=== PATIENT | female | born 1985 | race Caucasian/White ===

== ENCOUNTER 2017-08-25 16:07 | Emergency (ER) | payer BC ==
[~2017-08-25] VITALS: Ht 170.2 cm; Wt 103.0 kg
[~2017-08-25 16:07] MED LIST: HYDACE5 PO; METR70GEL VAG; MULVITMINE PO; OXYACE5T PO
[2017-08-25] MEDS ORDERED: Robaxin500 MG PO (18:58)
[2017-08-25] MEDS ORDERED: Norco 5-325 Ta1 EACH PO (18:58)
[2017-08-25] MEDS ORDERED: IBUP800 PO (18:58)
[2017-08-25] MEDS ORDERED: LIDO700A20 TOP (18:58)
== END 2017-08-25 19:10 | disposition home or self-care (01) ==
LOC: ER 16:07
DX: M54.5 Low back pain (principal); K59.00 Constipation, unspecified; Z79.899 Other long term (current) drug therapy
CPT/HCPCS: 72100; 93005; 93010; 96372; 96374; 99284; J1170; J1885

== ENCOUNTER → 2018-08-09 | Outpatient (CLI) | payer BC ==
[~2018-08-09] MED LIST changes: +IBUP800 PO; +LIDO700A20 TOP; +Norco 5-325 Ta1 EACH PO; +Robaxin500 MG PO
[2018-08-10 15:07] LABS: HPV 16 Negative (Negative); HPV 18 Negative (Negative); HPV OTHER HR TYPES Negative (Negative)
== END | disposition home or self-care (01) ==
LOC: LAB 10:49 → LAB SHORT 10:49
PROVIDERS: Obstetrics & Gynecology
DX: Z12.4 Encounter for screening for malignant neoplasm of cervix (principal)
CPT/HCPCS: 87624; G0123

== ENCOUNTER → 2018-08-09 | Outpatient (CLI) | payer BC | END | disposition home or self-care (01) | LOC: LAB SHORT 13:17 → PLD 13:17 | DX: N92.0 Excessive and frequent menstruation with regular cycle (principal); N85.00 Endometrial hyperplasia, unspecified | CPT/HCPCS: 88305 ==

== ENCOUNTER 2018-09-20 08:41 | Day surgery (SDC) | payer BC ==
[~2018-09-20] VITALS: Ht 170.2 cm; Wt 88.3 kg
[2018-09-20] MEDS ORDERED: Adipex-P37.5 MG PO (08:57)
--- NOTE | 2018-09-20 09:27 | NUR ---
PATIENT GAVE ME PERMISSION TO CARE FOR HER TODAY 09/20/18. History, Chart, Medications and Allergies reviewed before start of procedure.Patient confirms NPO status and agrees with scheduled surgery. Lungs clear T/O to Auscultation. Patient reports completing Chlorhexadine shower X2 prior to admission to hospital.
--- NOTE | 2018-09-20 09:31 | NUR ---
STUDENT NURSE CHANEL ASSISTING WITH PREOPERATIVE CARE. AGREE WITH HER CHARTING AND CARE.
--- NOTE | 2018-09-20 10:34 | NUR ---
09/20/18 1034 China Garcia NO PREOP ANTIBIOTICS ORDERED
--- NOTE | 2018-09-20 11:40 | NUR ---
CRACKERS GIVEN, FRIEND AT BEDSIDE. PAIN STARTING TO CREEP UP, CRAMPY, WILL PLAN TO GIVE PO PERCOCET PER ORDER LONG CRACKERS ARE TOLERATED.
--- NOTE | 2018-09-20 12:25 | NUR ---
1215 Patient up to Ambulate independently. Gait steady. Discharge instructions reviewed with patient. Patient verbalizes understanding. Copy given to patient to take home. Patient States Post-Procedure ride home has been arranged. Discharged via wheelchair to private car for ride home. LIBBY PAD CHANGE AT TIME OF DC. BLEEDING THROUGH UNDERWEAR WITH UP RIGHT POSITION WHILE GETTING DRESSED.
== END 2018-09-20 22:49 | disposition home or self-care (01) ==
LOC: ORSCMMR 08:41 → ORD 09:45 → ORSCMMR 09:45
PROVIDERS: Obstetrics & Gynecology
PROC: 0U5B8ZZ Destruction of Endometrium, Via Natural or Artificial Opening Endoscopic (ICD-10-PCS; principal; 2018-09-20 09:45)
DX: N92.0 Excessive and frequent menstruation with regular cycle (principal)
CPT/HCPCS: J1100; J1885; J2250; J2405; J2704; J3010; J7120

== ENCOUNTER → 2019-08-15 | Outpatient (CLI) | payer BC ==
[~2019-08-15] MED LIST changes: +Adipex-P37.5 MG PO
[2019-08-15 12:41] LABS: Influenza A Negative (NEGATIVE); Influenza B Negative (NEGATIVE)
== END | disposition home or self-care (01) ==
LOC: LAB 09:45 → LAB SHORT 09:45
PROVIDERS: Family Medicine
DX: R05 Cough (principal); R50.9 Fever, unspecified
CPT/HCPCS: 87804

== ENCOUNTER → 2022-07-15 | Outpatient (CLI) | payer BC ==
[2022-07-15 10:07] LABS: BASOPHILS ABSOLUTE AUTO 0.05 K/mm3 (0.00-0.23); BASOPHILS PERCENT AUTO 1 % (0-2); EOSINOPHILS ABSOLUTE AUTO 0.11 K/mm3 (0.00-0.68); EOSINOPHILS PERCENT AUTO 2 % (0-6); Hematocrit 41.6 % (33.0-51.0); Hemoglobin 14.6 g/dL (11.5-16.0); IMMATURE GRAN ABSOLUTE AUTO 0.03 K/mm3 (0.00-0.10); IMMATURE GRAN PERCENT AUTO 0 % (0-1); LYMPHOCYTES ABSOLUTE AUTO 1.64 K/mm3 (0.84-5.20); LYMPHOCYTES PERCENT AUTO 25 % (21-46); MONOCYTES ABSOLUTE AUTO 0.45 K/mm3 (0.16-1.47); MONOCYTES PERCENT AUTO 7 % (4-13); Mean Corpuscular HGB Conc 35.1 g/dL (31.5-36.5); Mean Corpuscular Volume 94 fL (80-100); Mean Platelet Volume 9.9 fL (9.1-12.4); NEUTROPHILS ABSOLUTE AUTO 4.39 K/mm3 (1.96-9.15); NEUTROPHILS PERCENT AUTO 66 % (41-73); Platelet Count 347 K/mm3 (150-400); RDW Coefficient Variation 12.7 % (11.7-14.2); RDW Standard Deviation 44.3 fL (35.1-46.3); Red Blood Cell Count 4.42 M/mm3 (3.80-5.20); White Blood Cell Count 6.67 K/mm3 (4.00-11.30)
[2022-07-15 10:29] LABS: Alanine Aminotransfer (ALT/SGP 24 U/L (12-78); Albumin, Blood 3.5 g/dL (3.4-5.0); Albumin/Globulin Ratio 1.1 (0.8-1.8); Alk Phos 82 U/L (50-136); Anion Gap 9 mmol/L (6-16); Aspartate Aminotrans (AST/SGOT 9 U/L (12-37); Bilirubin, Total 0.4 mg/dL (0.1-1.0); Blood Urea Nitrogen 13 mg/dL (8-24); Bun/Creatinine Ratio 15.1 (12.0-20.0); CHOL/HDL RATIO 3.5; CO2, Blood 22 mmol/L (21-32); Calcium, Blood 8.9 mg/dL (8.5-10.1); Chloride, Blood 107 mmol/L (98-108); Cholesterol 205 mg/dL (50-200); Creatinine, Blood 0.86 mg/dL (0.40-1.00); Globulin, Blood 3.2 g/dL (2.2-4.0); Glomerular Filtration Rate 89 (60-); Glucose, Blood 90 mg/dL (70-99); HDL Cholesterol 59 mg/dL (>39); LDL/HDL RATIO 1.9; Low Density Lipoprotein Chol 115 mg/dL (0-110); Potassium, Blood 4.4 mmol/L (3.5-5.5); Sodium, Blood 138 mmol/L (136-145); Total Protein, Blood 6.7 g/dL (6.4-8.2); Triglycerides 157 mg/dL (30-140); Very Low Density Lipoprot Chol 31 mg/dL (6-28)
== END | disposition home or self-care (01) ==
LOC: LAB SHORT 08:00 → LAB 08:00
PROVIDERS: Family Medicine
DX: Z00.00 Encounter for general adult medical examination without abnormal findings (principal)
CPT/HCPCS: 80053; 80061; 83036; 84443; 85025